=== PATIENT | female | born 1990 | race Caucasian/White ===

== ENCOUNTER 2020-08-14 09:28 | Emergency (ER) | payer OTHER, SELFPAY ==
--- NOTE | ~2020-08-14 | XR_ITS ---
EXAMINATION: XR chest 1V portable EXAM DATE: 08/14/2020 10:16 INDICATION: Back pain radiating through chest. TECHNIQUE: Portable AP frontal chest x-ray was obtained. There is no prior study for comparison. FINDINGS: The lungs are clear. There are no pleural effusions. The cardiomediastinal silhouette is within normal limits. There is no pneumothorax suspected. The bones and soft tissues are unremarkab le. IMPRESSION: No acute cardiopulmonary findings. Reviewed, dictated and finalized at location B.
[2020-08-14 09:36] VITALS: BP 141/96; PULSE 85; PULSE 91; PULSE 96; RESP 11; RESP 18; TEMP 36.2; O2SAT 100
--- NOTE | 2020-08-14 09:52 | ED.GENADULT ---
HPI - General Adult General Chief complaint: Unspecified Stated complaint: back pains/nausea/sweating Time Seen by Provider: 08/14/20 09:49 Source: patient Mode of arrival: ambulatory Limitations: no limitations History of Present Illness HPI narrative: This patient is a 30-year-old female complaining of a right-sided chest pain rating to her upper back accompanied by nausea and diarrhea x 1 day. Patient states her pain is a 6 out of 10 sharp at started last night. Patient denies any shortness of breath abdominal pain nausea vomiting or fever. Patient was recently diagnosed with COVID approximately 3 weeks ago and cleared from quarantine this past week. Related Data Home Medications Medication Instructions Recorded Confirmed No Home Medications 11/19/19 11/19/19 Allergies Allergy/AdvReac Type Severity Reaction Status Date / Time Sulfa (Sulfonamide Allergy Unknown Verified 11/19/19 13:50 Antibiotics) Henderson Allergy Unknown HIVES Uncoded 11/19/19 13:50 Review of Systems Review of Systems: All systems reviewed & are unremarkable except as noted in HPI and below Constitutional: Constitutional: Denies body ache(s), Denies chills, Denies excessive sweating, Denies fatigue, Denies fever(s), Denies headache(s), Denies lethargy, Denies malaise, Denies weakness and Denies weight loss Eyes: Eyes: Denies blurry vision, Denies change in vision and Denies loss of vision ENT: Denies dizziness, Denies ear discharge, Denies headache(s), Denies lip swelling, Denies epistaxis, Denies nasal congestion, Denies neck pain, Denies throat swelling and Denies tongue swelling Cardiovascular: Cardiovascular: Denies chest pain at rest, Denies chest pain with activity, Denies diaphoresis, Denies rapid heart rate, Denies edema, Denies irregular heart rhythm, Denies lightheadedness, Denies palpitations, Denies dyspnea and Denies dyspnea on exertion Respiratory: Respiratory: Denies chest congestion, Denies cough, Denies hemoptysis, Denies dyspnea and Denies dyspnea on exertion Gastrointestinal: Gastrointestinal: Denies abdominal pain, Denies melena, Denies hematochezia, Denies diarrhea, Denies nausea, Denies vomiting and Denies hematemesis Musculoskeletal: Musculoskeletal: Denies abnormal gait, Denies deformity, Denies joint swelling, Denies limited range of motion, Denies neck pain and Denies numbness Neurologic: Denies Abnormal speech present, Denies abnormal gait, Denies confusion, Denies dizziness, Denies headache(s), Denies focal weakness, Denies loss of vision, Denies numbness, Denies Other visual disturbances, Denies Sensory deficit (Neuro) and Denies weakness Psychiatric: Psychiatric: Denies confusion, Denies depression, Denies auditory hallucinations, Denies homicidal ideation and Denies suicidal ideation Endocrine: Endocrine: Denies cold intolerance, Denies excessive sweating, Denies fatigue, Denies heat intolerance and Denies palpitations Hematologic/Lymphatic: Hematologic/Lymphatic: Denies easy bleeding and Denies easy bruising Allergic/Immunologic: Allergic/Immunologic: Denies lip swelling, Denies throat swelling and Denies tongue swelling [facility] Family History Family History (Updated 06/17/16 @ 23:21 by DOCTOR UNKNOWN) Father Patient's father is in good health Sibling Patient's sister is in good health Patient's brother is in good health Mother Cerebrovascular accident, Onset Age: 42 Patient's mother is , Onset Age: 42 Social History Social History Smoking status: Never smoker Second hand tobacco smoke exposure: No Alcohol intake: never Gender identity (if verbalized by the patient): Female Exam Const: General: cooperative, healthy appearing, comfortable, no acute distress, well developed, alert and awake; No confusion Orientation/consciousness: oriented to person, oriented to place, oriented to time, patient oriented x3 and No confusion Limitations: no limitations HENMT: Head:
[2020-08-14 09:54] LABS: Basophils Absolute Auto 0.1 K/mm3 (0.0-0.1); Basophils Percent Auto 0.5 % (0.2-1.2); Eosinophils Absolute Auto 0.4 K/mm3 (0-0.3); Eosinophils Percent Auto 3.8 % (0-4.4); Hematocrit 42.6 % (37.0-47.0); Hemoglobin 14.3 g/dL (12.0-15.0); Immature Granulocyte Absolute 0.02 K/mm3 (0.00-0.031); Immature Granulocyte Percent A 0.2 % (0-0.5); Lymphocytes Absolute Auto 2.74 K/mm3 (0.9-3.2); Mean Corpuscular HGB Conc 33.6 g/dl (32-36); Mean Corpuscular Volume 92.2 fl (80-100); Mean Platelet Volume 10.3 fl (7.4-10.4); Monocytes Absolute Auto 0.9 K/mm3 (0.1-0.6); Monocytes Percent Auto 8.5 % (2.6-8.5); Neutrophils Absolute Auto 6.8 K/mm3 (1.3-6.7); Platelet Count Result 358 k/mm3 (150-375); Red Blood Count 4.62 M/mm3 (4.2-5.4); Red Cell Distribution Width 12.1 % (11.5-14.5)
[2020-08-14 10:06] LABS: Anion Gap 9 mmol/L (8-16); Blood Urea Nitrogen 13 mg/dL (7-17); Calcium 9.2 mg/dL (8.4-10.2); Carbon Dioxide 25 mmol/L (22-30); Chloride 105 mmol/L (98-107); Estimated CRCL calculation 113 ml/min; Estimated Glomerular Filt Rate > 60; Glucose 101 mg/dL (65-105); Potassium 3.6 mmol/L (3.4-5.0); Sodium 139 mmol/L (137-145)
[2020-08-14 10:20] LABS: D Dimer 0.31 ug/mL (<0.48)
[2020-08-14 11:40] VITALS: BP 118/74; PULSE 77; RESP 18; O2SAT 100
--- NOTE | 2020-08-14 11:57 | PC.NURSE ---
SPOKE WITH LAB AT THIS TIME ABOUT ADDING ON TROPONIN, STATES SHE WILL GET IT DONE.
[2020-08-14] MEDS: KETOROLAC 30 MG/ML VIAL (*BKC) IV PUSH (12:03)
[2020-08-14 12:20] LABS: Troponin I < 0.012 ng/mL (0.000-0.034)
--- NOTE | 2020-08-14 12:33 | ECG_ITS ---
Measurements Intervals [place] Rate: 79 P: 31 VA: 156 QRS: 21 QRSD: 95 T: 0 QT: 394 QTc: 453 Interpretive Statements SINUS RHYTHM BORDERLINE T WAVE ABNORMALITY- ANT/INF LEADS BASELINE WANDER- I, III, V5-V6 BORDERLINE ECG Electronically Signed On 08-14-2020 20:08:07 CDT by Jose Rivera D.O.
[2020-08-14 13:18] VITALS: BP 121/77; PULSE 89; RESP 16; O2SAT 100
== END 2020-08-14 13:20 | disposition home or self-care (01) ==
PROVIDERS: Emergency Provider Emergency Medicine; PCP Internal Medicine
DX: R07.89 Other chest pain (principal); K52.9 Noninfective gastroenteritis and colitis, unspecified; Z86.19 Personal history of other infectious and parasitic diseases; R94.31 Abnormal electrocardiogram [ECG] [EKG]
CPT/HCPCS: 36415; 71045; 80048; 84484; 85025; 85380; 93005; 96374; 99284; J1885

== ENCOUNTER 2023-02-08 18:21 | Emergency (ER) | payer OTHER, SELFPAY ==
[2023-02-08 18:36] VITALS: BP 135/81; PULSE 94; RESP 16; TEMP 36.7; O2SAT 100
--- NOTE | 2023-02-08 18:55 | ED.EAR ---
HPI - Ear Problem General Chief complaint: Ear Stated complaint: rt earache Time Seen by Provider: 02/08/23 18:55 Source: patient Mode of arrival: ambulatory Limitations: no limitations History of Present Illness HPI Narrative: 32-year-old female presents with complaint of right ear pain since yesterday. Afebrile. Reports that she had sinus and nasal congestion last week But has mostly resolved. All systems negative except as noted above. Related Data Allergies Allergy/AdvReac Type Severity Reaction Status Date / Time Sulfa (Sulfonamide Allergy Unknown unknown Verified 02/08/23 18:56 Antibiotics) Henderson Allergy Unknown HIVES Uncoded 02/08/23 18:56 Review of Systems Review of Systems: CONSTITUTIONAL: Denies fever, chills, or sweats. EYES: Denies visual changes, redness, or discharge. ENT: Denies rhinorrhea, congestion, sore throat. Reports right ear pain. CARDIOVASCULAR: Denies chest pain, palpitations, or edema. RESPIRATORY: Denies cough or dyspnea. GASTROINTESTINAL: Denies abdominal pain, nausea, vomiting, or diarrhea. GENITOURINARY: Denies dysuria or hematuria. SKIN: Denies rash or itching. MUSCULOSKELETAL: Denies back pain, joint pain, or myalgia. NEUROLOGIC: Denies headache, numbness, or weakness. PSYCHIATRIC: Denies anxiety or depression. All other systems reviewed are negative, except as documented in HPI. [facility] Past Medical History Medical History delivery delivered Surgical History Surgical History H/O dilation and curettage History of tonsillectomy Family History Family History Father Patient's father is in good health Sibling Patient's sister is in good health Patient's brother is in good health Mother Cerebrovascular accident, Onset Age: 42 Patient's mother is , Onset Age: 42 Social History Social History Smoking status: Never smoker Second hand tobacco smoke exposure: No Alcohol intake: never Gender identity (if verbalized by the patient): Female Comments At time of signature, agree with nursing past medical, surgical, social and family history. There is no relevant family history pertinent to the presenting complaint. Exam Narrative: GENERAL: This is a well-nourished, well-developed patient, in no apparent distress. HEAD: normocephalic, atraumatic. EYES: PERRL. Sclera clear/white. Vision is grossly intact. EARS: External ears normal, auditory canals clear and without drainage, Right TM is erythematous, bulging with purulence NOSE: External nose normal with no obvious nasal discharge, nares without redness, no rhinorrhea. THROAT: Mucous membranes moist, posterior pharynx clear. NECK: Neck supple, non-tender without lymphadenopathy, masses or thyromegaly. CARDIOVASCULAR: Regular rate and rhythm without murmurs, gallops, or rubs. RESPIRATORY: Clear to auscultation. Breath sounds equal bilaterally. No wheezes, rales, or rhonchi. SKIN: warm, Dry, intact with no suspicious lesions or rash, good texture and turgor. NEURO: awake, alert, and oriented to person, place and time. There were no obvious focal neurologic abnormalities. EXTREMITIES: No joint tenderness, effusion, or edema noted. Course Course Level of Care: Express Care Visit Vital Signs Vital signs: Vital Signs Temperature 36.7 C 02/08/23 18:36 Pulse Rate 94 02/08/23 18:36 Respiratory Rate 16 02/08/23 18:36 Blood Pressure 135/81 02/08/23 18:36 Pulse Oximetry 100 02/08/23 18:36 Oxygen Delivery Room Air 02/08/23 18:36 Temperature 36.7 C 02/08/23 18:36 Pulse Rate 94 02/08/23 18:36 Respiratory Rate 16 02/08/23 18:36 Blood Pressure 135/81 02/08/23 18:36 Pulse Oximetry 100 02/08/23 18:36 Oxygen Delivery Room Air
== END 2023-02-08 19:19 | disposition home or self-care (01) ==
PROVIDERS: Emergency Provider Nurse Practitioner Family; PCP Family Medicine
DX: H66.91 Otitis media, unspecified, right ear (principal)
CPT/HCPCS: 99213; G0463

== ENCOUNTER 2025-11-10 11:46 | Outpatient (CLI) | payer OTHER, SELFPAY ==
--- OUTSIDE RECORDS SUMMARY | 2025-11-10 13:35 | XMS_ITS | Encounter Summary ---
Author Organization [facility] Healthcare Address [address] [place] [id number] Care Team Providers Care Real Estate Internship Name Role Phone Weston Ace DO Primary Care Provider + Encounter Details Date Type Department Care Team ([facility] st Contact Info) Description 10/14/2025 Results Follow-Up [facility] Care at [address] [id number] [place] Hummel NP [address] [facility] [place] [address] [place], [place] [id number] XR Foot Left 3+ Vw Social History Tobacco Use Types Packs/Day Years Used Date Smoking Tobacco: Never PHQ-2 Answer Date Recorded PHQ-2 Total Score (If total score is 3 or more points, staff should administer the PHQ-9) 0 05/29/2025 Comments Unknown Sex and Gender Information Value Date Recorded Sex Assigned at Not on file Legal Sex Female 10:56 AM CDT Gender Identity Female 04/14/2022 10:50 AM CDT Sexual Orientation Straight 10/17/2021 7: 17 PM SUPERVISOR WEAVING documented as of this encounter Plan of Treatment Not on file documented as of this encounter Visit Diagnoses Not on filedocumented in this encounter Care Teams Real Estate Internship Relationship Specialty Start Date End Date Weston Ace DO [facility] [address] [place] [address] PCP - General Family Medicine 10/18/21 documented as of this encounter
--- OUTSIDE RECORDS SUMMARY | 2025-11-10 13:35 | XMS_ITS | Clinical Summary ---
Author Organization [facility] Address [address] [facility] [place] [address] Care Team Providers Care Electrical Cad Designer Name Role Phone Bernardino Smith Primary Care Provider [phone] Source Comments [facility],non-owned Affiliates and Associated Physician Practices is amultiple site organization consisting of ambulatory clinics and hospital sitesin [place], [place], [place] and [place]. This disclosure is being madepursuant to the Care Everywhere program and may not contain all information available regarding this patient. Last updated 18.[facility] Allergies Active Allergy Reactions Criticality Noted Date Comments Sulfa Drugs 10/14/2017 Medications * Be aware that medications may not be up to date on this document. Alwaysverify current medications with the patient. fluticasone propionate (FLONASE) 50 MCG/ACT nasal sprayIndication s:Acute serous otitis media of left ear, recurrence not specified [place] 2 sprays into each nostril once daily 1 g 12/04/2019 Active Social History Tobacco Use Types Packs/Day Years Used Date Smoking Tobacco: Never Smokeless Tobacco: Never Comments No Sex and Gender Information Value Date Recorded Sex Assigned at Not on file Legal Sex Female 6:23 PM WORD PROCESSOR TECHNICIAN Gender Identity Not on file Sexual Orientation Not on file Last Filed Vital Signs Vital Sign Reading Time Taken Comments Blood Pressure 118/72 12/04/2019 9:36 AM WORD PROCESSOR TECHNICIAN Pulse 87 12/04/2019 9:36 AM WORD PROCESSOR TECHNICIAN Temperature 37.1 C (98.7 F) 12/04/2019 9:36 AM WORD PROCESSOR TECHNICIAN Respiratory Rate 16 12/04/2019 9:36 AM WORD PROCESSOR TECHNICIAN Oxygen Saturation 98% 12/04/2019 9:36 AM WORD PROCESSOR TECHNICIAN Inhaled Oxygen Concentration - - Weight 102.1 kg (225 lb) 12/04/2019 9:36 AM WORD PROCESSOR TECHNICIAN Height 175.3 cm (5' 9) 12/04/2019 9:36 AM WORD PROCESSOR TECHNICIAN Body Mass Index 33.23 12/04/2019 9:36 AM WORD PROCESSOR TECHNICIAN Plan of Treatment Health Maintenance Due Date Last Done Comments HIV SCREENING 2003 HEPATITIS C SCREENING 03/19/2006 DTAP/TDAP/TD VACCINES (1 - Tdap) 2007 HEPATITIS B VACCINE (1 of 3 - 19+ 3-dose series) 2007 HPV VACCINE (1 - 3-dose SCDM series) 2015 DEPRESSION SCREENING 11/20/2024 COVID-19 VACCINE (1 - 2024-2 6 season) 2025 INFLUENZA VACCINE (#1) 2025 ZOSTER VACCINE (1 of 2) 2038 HIB VACCINE Aged Out No longer eligi ble based on patient's age to complete this topic MENINGOCOCCAL (Group B) VACC INE SHARED DECISION-MAKING Aged Out No longer eligibl e based on patient's age to complete this topic MENINGOCOCCAL GROUPS A/C/Y/W VACCINE Aged Out No longer eligible b ased on patient's age to complete this topic PNEUMOCOCCAL VACCINE Aged Out No long er eligible based on patient's age to complete this topic Insurance [facility] Care Teams Electrical Cad Designer Relationship Specialty Start Date End Date Bernardino Smith DO [address] [facility] [address] [facility] [address] [place] [address] PCP - General Internal Medicine 10/14/17
--- OUTSIDE RECORDS SUMMARY | 2025-11-10 13:35 | XMS_ITS | Clinical Summary ---
Author Organization [facility] at the Medical Office Building Address [address] [place] [id number] Care Team Providers Care Vibrator Equipment Tester Name Role Phone Weston Ace DO Primary Care Provider + Allergies Active Allergy Reactions Criticality Noted Date Comments Sulfa (Sulfonamide Antibiotics) Itching,Rash,Redness Mediu m 10/18/2021 Medications multivitamin capsule Take 1 capsule by mouth daily Active glycopyrrolate (ROBINUL) 1 mg tablet 08/28/2023 Active Active Problems Problem Noted Date Diagnosed Date Seasonal allergic rhinitis due to pollen 025 Allergic rhinitis due to mold 09/11/2025 Allergic rhinitis due to dust mite 09/11/2025 IFG (impaired fasting glucose) 02/19/2025 Elevated BP without diagnosis of hypertension Overview (02/19/2025): chronic,stable,cont current tx,rout f/u prior record/labs reviewed;see orders RTC PRN Home BP Diary-report abnormals Mixed hyperlipidemia 02/19/2025 Leukocytosis, unspecified type 01/06/2023 History of kidney stones 10/18/2021 Mitral valve prolapse 07/10/2014 Palpitations 07/10/2014 Encounters Date Type Department Care Team Description 10/15/2025 Telephone [facility] Sports Medicine and Primary Care at [address] [place] [address] Benjie Canchola DO 10/14/2025 Results Follow-Up [facility] Convenient Care at [address] [address] Concepción Hummel NP XR Foot Left 3+ Vw 10/13/2025 3:52 PM EPIC APPLICATION COORDINATOR - 10/13/2025 11:59 PM EPIC APPLICATION COORDINATOR Hospital Encounter [address] [address] Left foot pain Discharge Disposition: Discharge to home or self care 10/12/2025 11:00 AM EPIC APPLICATION COORDINATOR Office Visit [facility] Con[facility]ient Care at [address] [phone] Edwina Hernández NP Left foot pain (Primary Dx) 09/01/2025 11:01 AM CDT - 09/01/2025 11:59 PM CDT Hospital Encounter [address] [address] Allergic rhinitis, unspecified seasonality, unspecified trigger; Chronic urticaria Discharge Disposition: Discharge to home or self care 09/01/2025 11:00 AM CDT Lab [facility] Medicine Infectious Diseases [address] [place] [address] [address] [place] [address] 09/01/2025 9:30 AM CDT Office Visit [facility] Medicine Allergy and Immunology [address] [place] [address] [address] [place] [address] Vandana Resendez MD Chronic urticaria (Primary Dx); Seasonal allergic rhinitis due to pollen; Allergic rhinitis due to mold; Allergic rhinitis due to dust mite from Last 3 Months Immunizations Immunization Administration Dates Next Due Influenza, Quadrivalent, Spl it, Preservative Free, Intramuscular 10/27/2023,10/19/2022 Influenza, Trivalent, Preser vative Free, Intramuscular 10/28/2024,08/27/2017,09/29/2015 Tdap 08/27/2017,10/26/2015,10/15/2013 Surgical History Surgery Date Site/Laterality Comments TONSILLECTOMY WISDOM TOOTH EXTRACTION DILATION AND CURETTAGE OF UTERUS SECTION Medical History Medical History Date Comments Asthma Kidney stone Family History Medical History Relation Name Comments Colon cancer Maternal Grandfather Brain cancer Maternal Grandmother Hypertension Mother Family history of hypertension - (Added by TW Conv) Stroke Mother Family history of cerebrovascular accident - (Added by TW Conv) Lung cancer Other Ovarian cancer Other Diabetes Paternal Grandmother Relation Name Status Comments Maternal Grandfather Maternal Grandmother Mother Other Paternal Grandmother Social History Tobacco Use Types Packs/Day Years Used Date Smoking Tobacco: Never Tobacco Cessation:Counseling Given: Not Answered PHQ-2 Answer Date Recorded PHQ-2 Total Score (If total score is 3 or more points, staff should administer the PHQ-9) 0 05/29/2025 Comments Unknown Sex and Gender Information Value Date Recorded Sex Assigned at Not on file Legal Sex Female 10:56 AM CDT Gender Identity Female 04/14/2022 10:50 AM CDT Sexual Orientation Straight 10/17/2021 7: 17 PM EPIC APPLICATION COORDINATOR Last Filed Vital Signs Vital Sign Reading Time Taken Comments Blood Pressure 145/92 10/12/2025 11:13 AM EPIC APPLICATION COORDINATOR Pulse 108 10/12/2025 11:13 AM EPIC APPLICATION COORDINATOR Temperature 37.3 C (99.1 F) 10/12/2025 11:13 AM EPIC APPLICATION COORDINATOR Respiratory Rate 18 10/12/2025 11:13 AM EPIC APPLICATION COORDINATOR Oxygen Saturation 99% 10/12/2025 11:13 AM EPIC APPLICATION COORDINATOR Inhaled Oxygen Concentration - - Weight 108.9 kg (240 lb) 10/12/2025 11:13 AM EPIC APPLICATION COORDINATOR Height 175.3 cm (5' 9.02) 09/01/2025 9:16 AM CD T Body Mass Index 35.43 09/01/2025 9:16 AM CDT Plan of Treatment Health Maintenance Due Date Last Done Comments Cervical Cancer Screening 1988 Varicella Vaccines (1 of 2 - 13+ 2-dose series) 2001 HPV Vaccines (1 - 3-dose SCDM series) 2015 Covid-19 Vaccine ( season) 2025 03/12/2021, 02/12/2021 Influenza Vaccine (#1) 2025 , 10/27/2023, 10/19/2022, Additional history exists Regular Well Visit/Exam 18-64 10/28/2025 10/28/2024, 10/27/2023, 10/19/2022, Additional history exists Depression Screening 05/21/2026 05/21/2025, 10/28/2024, 10/27/2023, Additional history exists DTaP/Tdap/Td Vaccine (4 - Td or Tdap) 08/27/2027 08/27/2017, 10/26/2015, 10/15/2013 Hepatitis B Screening Completed 10/28/2024 Hepatitis C Screening Completed 10/28/2024 Pneumococcal vaccine <65 Aged Out No longer eligible based on patient's age to complete this topic Procedures Procedure Name Priority Date/Time Associated Diagnosis Comments XR FOOT LEFT 3 OR MORE VIEWS Schedule NAVNEET, Read NAVNEET (Appt Today, Awaiting Results) 10/13/2025 4:11 PM EPIC APPLICATION COORDINATOR Left foot pain BLOOD MISC TO [place] Routine 09/01/2025 4: 10 PM CDT EGFR Routine 09/01/2025 11:01 AM CDT DIFFERENTIAL AUTO Routine 09/01/2025 11:01 AM CDT Chronic urticaria COMPREHENSIVE METABOLIC PANEL Routine 09/01/2025 11:01 AM CDT THYROID PEROXIDASE ANTIBODY Routine 09/01/2025 11:01 AM CDT Chronic urticaria TRYPTASE Routine 09/01/2025 11:01 AM CDT Chronic urticaria CBC WITH AUTO DIFFERENTIAL Routine 09/01/2025 11:01 AM CDT Chronic urticaria IGE Routine 09/01/2025 11:01 AM CDT Chronic urticaria CRP (ACUTE PHASE) Routine 09/01/2025 11:01 AM CDT Chronic urticaria ERYTHROCYTE SEDIMENTATION RATE Routine 09/01/2025 11:01 AM CDT Chronic urticaria DAMARI QUALITATIVE WITH REFLEX TO DAMARI QUANTITATIVE Routine 09/01/2025 11:01 AM CDT Chronic urticaria RHEUMATOID FACTOR Routine 09/01/2025 11:01 AM CDT Chronic urticaria ALLERGEN BIRCH COMMON SILVER (TREE) IGE Routine 09/01/2025 11:01 AM CDT Allergic rhinitis, unspecified seasonality, unspecified trigger ALLERGEN ELM (TREE) IGE Routine 09/01/20 11:01 AM CDT Allergic rhinitis, unspecified seasonality, unspecified trigger ALLERGEN MAPLE/BOX ELDER (TREE) IGE Routine 09/01/2025 11:01 AM CDT Allergic rhinitis, unspecified seasonality, unspecified trigger ALLERGEN MOUNTAIN JUNIPER (TREE) IGE Routine 09/01/2025 11:01 AM CDT Allergic rhinitis, unspecified seasonality, unspecified trigger ALLERGEN MULBERRY (TREE) IGE Routine 09/01/2025 11:01 AM CDT Allergic rhinitis, unspecified seasonality, unspecified trigger ALLERGEN OAK RED (TREE) IGE Routine 09/01/2025 11:01 AM CDT Allergic rhinitis, unspecified seasonality, unspecified trigger ALLERGEN SYCAMORE MONTSERRATIAN (TREE) IGE Routine 09/01/2025 11:01 AM CDT Allergic rhinitis, unspecified seasonality, unspecified trigger ALLERGEN WALNUT (TREE) IGE Routine 09/01/2025 11:01 AM CDT Allergic rhinitis, unspecified seasonality, unspecified trigger ALLERGEN BERMUDA GRASS (GRASS) IGE Routine 09/01/2025 11:01 AM CDT Allergic rhinitis, unspecified seasonality, unspecified trigger ALLERGEN DEMOND GRASS (GRASS) IGE Routine 09/01/2025 11:01 AM CDT Allergic rhinitis, unspecified seasonality, unspecified trigger ALLERGEN FARAZ GRASS (GRASS) IGE Routine 09/01/2025 11:01 AM CDT Allergic rhinitis, unspecified seasonality, unspecified trigger ALLERGEN PLANTAIN UZBEK (WEED) IGE Routine 09/01/2025 11:01 AM CDT Allergic rhinitis, unspecified seasonality, unspecified trigger ALLERGEN TEMPLETON'S QUARTER (WEED) IGE Routine 09/01/2025 11:01 AM CDT Allergic rhinitis, unspecified seasonality, unspecified trigger ALLERGEN PIGWEED ROUGH (WEED) IGE Routine 09/01/2025 11:01 AM CDT Allergic rhinitis, unspecified seasonality, unspecified trigger ALLERGEN RAGWEED SHORT/COMMON (WEED) IGE Routine 09/01/2025 11:01 AM CDT Allergic rhinitis, unspecified seasonality, unspecified trigger ALLERGEN NETTLE (WEED) IGE Routine 09/01/2025 11:01 AM CDT Allergic rhinitis, unspecified seasonality, unspecified trigger ALLERGEN ALTERNARIA TENUIS (MOLD) IGE Routine 09/01/2025 11:01 AM CDT Allergic rhinitis, unspecified seasonality, unspecified trigger ALLERGEN ASPERGILLUS FUMIGATUS (MOLD) IGE Routine 09/01/2025 11:01 AM CDT Allergic rhinitis, unspecified seasonality, unspecified trigger ALLERGEN CLADOSPORIUM HERBARUM (MOLD) IGE Routine 09/01/2025 11:01 AM CDT Allergic rhinitis, unspecified seasonality, unspecified trigger ALLERGEN PENICILLIUM CHRYSOGENUM (MOLD) IGE Routine 09/01/2025 11:01 AM CDT Allergic rhinitis, unspecified seasonality, unspecified trigger ALLERGEN EPITHELIA/DANDER CAT (ANIMAL) IGE Routine 09/01/2025 11:01 AM CDT Allergic rhinitis, unspecified seasonality, unspecified trigger ALLERGEN COCKROACH MONTSERRATIAN (INSECT) IGE Routine 09/01/2025 11:01 AM CDT Allergic rhinitis, unspecified seasonality, unspecified trigger ALLERGEN DERMATOPHAGOIDES FARINAE (INSECT) IGE Routine 09/01/2025 11:01 AM CDT Allergic rhinitis, unspecified seasonality, unspecified trigger ALLERGEN DERMATOPHAGOIDES PTERONYSSINUS (INSECT) IGE Routine 09/01/2025 11:01 AM CDT Allergic rhinitis, unspecified seasonality, unspecified trigger ALLERGEN EPITHELIA/DANDER DOG (ANIMAL) IGE Routine 09/01/2025 11:01 AM CDT Allergic rhinitis, unspecified seasonality, unspecified trigger ALLERGEN MOUSE MIX (ANIMAL) IGE Routine 09/01/2025 11:01 AM CDT Allergic rhinitis, unspecified seasonality, unspecified trigger ALLERGEN RAT MIX (ANIMAL) IGE Routine 09/01/2025 11:01 AM CDT Allergic rhinitis, unspecified seasonality, unspecified trigger HEPATITIS C ANTIBODY Routine 10/28/2024 7:45 AM EPIC APPLICATION COORDINATOR Need for hepatitis C screening test from Last 3 Months or Most Recently Relevant to Health Maintenance Results * XR Foot Left 3+ Vw (10/13/2025 4:11 PM EPIC APPLICATION COORDINATOR) Anatomical Region Laterality Modality Lower Extremities, Foot Left Computed Radiography 10/14/2025 6:59 AM EPIC APPLICATION COORDINATOR Impressions 10/14/2025 6:59 AM EPIC APPLICATION COORDINATOR 1. No acute radiographic abnormality. 2. Soft tissue swelling along the dorsal midfoot. Electronically signed by: Warren Subramanian M.D. Narrative 10/14/2025 6:59 AM EPIC APPLICATION COORDINATOR EXAM DESCRIPTION: XR FOOT LEFT 3 OR MORE VIEWS REASON FOR STUDY: Left foot pain after foot buckled underneath her on Monday night. TECHNIQUE: Three views of the left foot COMPARISON: Left foot radiographs 09/15/2022 FINDINGS: BONES/JOINTS: No acute fracture or dislocation. The joint spaces are normal. There is a 4 mm plantar surface calcaneal spur. SOFT TISSUES: Soft tissue swelling along the dorsal midfoot. Procedure Note Warren Subramanian MD - 10/14/2025 EXAM DESCRIPTION: XR FOOT LEFT 3 OR MORE VIEWS REASON FOR STUDY: Left foot pain after foot buckled underneath her on Monday night. TECHNIQUE: Three views of the left foot COMPARISON: Left foot radiographs 09/15/2022 FINDINGS: BONES/JOINTS: No acute fracture or dislocation. The joint spaces are normal. There is a 4 mm plantar surface calcaneal spur. SOFT TISSUES: Soft tissue swelling along the dorsal midfoot. IMPRESSION: 1. No acute radiographic abnormality. 2. Soft tissue swelling along the dorsal midfoot. Electronically signed by: Warren Subramanian M.D. Edwina Hernández NP IMG XR PROCEDURES Final Result * BLOOD MISC TO [place] (09/01/2025 4:10 PM CDT) Test name, chem FCUIP Ebony ref Lab Misc See Footnote BRAN[facility]E FIELDS Comment: Test Result Flag Unit RefValue CU (Chronic Urticaria) Index Panel Anti-Thyroid Peroxidase IgG <10 IU/mL <35 Anti-Thyroglobulin IgG <20 IU/mL <40 TSH (Thyrotropin) 0.76 uIU/mL 0.4-4 CU Index 9.6 <10 The CU Index(R) test is the second generation Functional Anti-FceR test. Patients with a CU Index(R) greater than or equal to 10 have basophil reactive factors in their serum which supports an autoimmune basis for disease. *This test was developed and its performance characteristics determined by [employer]. It has not been cleared or approved by the U.S. Food and Drug Administration. FLAG Interpretation: A = Abnormal, H = High, L = Low Test Performed by: [facility] [id number] [id number] Blood 09/01/2025 4:10 PM CDT 09/02/2025 7:58 AM CDT Harry IRVIN CH - 09/12/2025 7:44 AM CDT CU (Chronic Urticaria) Index Panel Vandana Resendez MD LAB BLOOD ORDERABLES Final Result Performing Organization Address City/[facility] Co de Phone Number BRANDEE FIELDS [address] [facility] [place] [address] [facility] ref Lab * Allergen Rat mix (animal) IgE (09/01/2025 11:01 AM CDT) Rat mix IgE <0.10 0.00 - 0.34 kUnits/L Comment:Testing performed by : [facility], [address] [place]., [address] Blood 09/01/2025 11:0 1 AM CDT 09/02/2025 10:20 AM CDT Vandana Resendez MD LAB BLOOD ORDERABLES Final Result Performing Organization Address [facility] Co de Phone Number JAQUELINEDEDRICK FIELDS [address] [place] [address] * Allergen Mouse mix (animal) IgE (09/01/2025 11:01 AM CDT) Pathologist [facility] Mouse mix IgE <0.10 0.00 - 0.34 kUnits/L Comment:Testing performed by : [facility], [address] [place] [address]., [id number] Blood 09/01/2025 11:0 1 AM CDT 09/02/2025 10:20 AM CDT Vandana Resendez MD LAB BLOOD ORDERABLES Final Result Performing Organization Address City/[facility] Co de Phone Number BRANDEE FIELDS [address] [facility] [address] * DAMARI ab ql w/rflx to DAMARI qn (09/01/2025 11:01 AM CDT) DAMARI Negative Comment: Interpretive Data Normal range for DAMARI Qualitative Antibody = Negative. 1. DAMARI is performed using indirect immunofluorescence against HEp-2 cells 2. DAMARI titers are performed on all positive qualitative results. 3. A significantly positive DAMARI result is defined as a positive nuclear fluorescence at a titer of 1:80 or greater. 4. 15% of normal people above age 65 have significantly positive DAMARI results. 5% or less of normal people age 65 or under have significantly positive DAMARI results. Current interpretive data was last revised on 2020. Testing performed by: [facility], [address] [place]., [address] Blood 09/01/2025 11:0 1 AM CDT 09/02/2025 10:11 AM CDT Vandana Resendez MD LAB BLOOD ORDERABLES Final Result [facility] FIELDS [address] Department of Laboratories [place], [place] [id number] * eGFR (09/01/2025 11:01 AM CDT) eGFR 87 >=60 mL/min/1. 73 m2 Comment: Interpretive Data Reference Interval Normal >/= 90 mL/min/1.73m2 Mildly decreased* 60 - 89 mL/min/1.73m2 Mildly to moderately decreased 45 - 59 mL/min/1.73m2 Moderately to severely decreased 30 - 44 mL/min/1.73m2 Severely decreased 15 - 29 mL/min/1.73m2 Kidney Failure < 15 mL/min/1.73m2 *Relative to young adult level Estimated glomerular filtration rate is determined by the 2020 CKD-EPI equation recommended by the National Kidney Foundation (A Unifying Approach to GFR Estimation: Recommendations of the NKF-ASK Task Force on Reassessing the Inclusion of Race in Diagnosing Kidney Disease, JASN 202). The CKD-EPI equation should not be used for patients with unstable renal function and has not been validated in children and those over 70. Current interpretive data was last reviewed 2021. Blood 09/01/2025 11:0 1 AM CDT 09/01/2025 4:52 PM CDT Vandana Resendez MD LAB BLOOD ORDERABLES Final Result [facility] [address] [place] [address] * (ABNORMAL) Differential, auto (09/01/2025 11:01 AM CDT) Neutrophil abs 6.65(H) 1.50 - 6.50 K/cumm Imm gran abs 0.03 0.00 - 0.10 K/cumm [facility] Lymphocyte abs 2.61 0.80 - 3.30 K/cumm [facility] Monocyte abs 0.80 0.20 - 0.80 K/cumm [facility] Eosinophil abs 0.39 0.00 - 0.50 K/cumm [facility] Basophil abs 0.08 0.00 - 0.10 K/cumm [facility] Neutrophil pct 62.9 % [facility] Comment: Interpretive Data Percent cell count reference ranges are not reported, since discordance with absolute values may lead to misinterpretation of CBC data. Current Interpretive Data was last revised on 2018. Imm gran pct 0.3 % [facility] Comment: Interpretive Data Percent cell count reference ranges are not reported, since discordance with absolute values may lead to misinterpretation of CBC data. Current Interpretive Data was last revised on 2018. Lymphocyte pct 24.7 % [facility] Comment: Interpretive Data Percent cell count reference ranges are not reported, since discordance with absolute values may lead to misinterpretation of CBC data. Current Interpretive Data was last revised on 2018. Monocyte pct 7.6 % [facility] Comment: Interpretive Data Percent cell count reference ranges are not reported, since discordance with absolute values may lead to misinterpretation of CBC data. Current Interpretive Data was last revised on 2018. Eosinophil pct 3.7 % [facility] Comment: Interpretive Data Percent cell count reference ranges are not reported, since discordance with absolute values may lead to misinterpretation of CBC data. Current Interpretive Data was last revised on 2018. Basophil pct 0.8 % [facility] Comment: Interpretive Data Percent cell count reference ranges are not reported, since discordance with absolute values may lead to misinterpretation of CBC data. Current Interpretive Data was last revised on 2018. Blood 09/01/2025 11:0 1 AM CDT 09/01/2025 4:52 PM CDT Vandana Resendez MD LAB BLOOD ORDERABLES Final Result Performing Organization Address [facility] Co de Phone Number BRANDEE FIELDS [address] [facility] [place] [address] * Allergen Penicillium chrysogenum (mold) IgE (09/01/2025 11:01 AM CDT) Penicillium chrysogenum IgE <0.10 0.00 - 0.34 kUnits/L Comment:Testing performed by : [facility], [address] [place] [address]., [id number] Blood 09/01/2025 11:0 1 AM CDT 09/02/2025 10:20 AM CDT Vandana Resendez MD LAB BLOOD ORDERABLES Final Result Performing Organization Address [facility] de Phone Number JAQUELINEDEDRICK [address] [place] [address] * Allergen [place] (tree) IgE (09/01/2025 11:01 AM CDT) [place] IgE <0.10 0.00 - 0.34 kUnits/L Comment:Testing performed by : [facility], [address] [place] [address]., [id number] Blood 09/01/2025 11:0 1 AM CDT 09/02/2025 10:20 AM CDT Result [facility] Vandana Resendez MD LAB BLOOD ORDERABLES Final Result Performing Organization Address City/[facility]/ZIP Co de Phone Number BRANDEE FIELDS [address] [facility] [place] [address] * Allergen Mountain juniper (tree) IgE (09/01/2025 11:01 AM CDT) Pathologist [facility] sally IgE <0.10 0.00 - 0.34 kUnits/L Comment:Testing performed by : [facility], [address] [place]., [address] Blood 09/01/2025 11:0 1 AM CDT 09/02/2025 10:20 AM CDT Vandana Resendez MD LAB BLOOD ORDERABLES Final Result JAQUELINEDEDRICK FIELDS [address] [place] [address] * (ABNORMAL) CBC with auto differential (09/01/2025 11:01 AM CDT) [facility] WBC 10.56(H) 3.80 - 9.90 K/cumm Hgb 14.3 11.9 - 15.5 g/dL [facility] Hct 43.7 35.6 - 45.5 % [facility] Plt 376 150 - 400 K/cumm [facility] CH MPV 9.7 9.1 - 12.3 fL [facility] RBC 4.75 3.90 - 5.20 M/cumm [facility] MCV 92.0 81.3 - 96.4 fL [facility] CH MCH 30.1 27.1 - 33.3 pg [facility] MCHC 32.7 32.3 - 35.7 g/dL [facility] RDW CV 12.5 11.1 - 14.9 % [facility] RDW SD 41.9 35.7 - 48.1 fL [facility] NRBC abs 0.00 0.00 - 0.01 K/cumm [facility] Blood 09/01/2025 11:0 1 AM CDT 09/01/2025 4:52 PM CDT Vandana Resendez MD LAB BLOOD ORDERABLES Final Result Performing Organization Address City/[facility]/ZIP Co de Phone Number BRANDEE DIAMOND [address] [place] [address] * Thyroid peroxidase antibody (TPO) (09/01/2025 11:01 AM CDT) Anti Thyroid Peroxidase <30 <=34 IUnits/mL Comment: ATPO Interpretive Data Results may be up to 28% higher in patients receiving Itraconazole. Current interpretive data was last revised 2021. Testing performed by: [facility], [address] [place]., [address] Blood 09/01/2025 11:0 1 AM CDT 09/02/2025 10:25 AM CDT Vandana Resendez MD LAB BLOOD ORDERABLES Final Result [facility] FIELDS [address] [place] [address] * Tryptase (09/01/2025 11:01 AM CDT) Tryptase Level 2.3 <11.5 ng/mL [facility] ref [facility] Comment: Test Performed by: [place] [address] Sewing Supervisor: Lencho Thomas Ph.D.; CLIA# [id number] Blood 09/01/2025 11:0 1 AM CDT 09/01/2025 4:52 PM CDT Vandana Resendez MD LAB BLOOD ORDERABLES Final Result JAQUELINEDEDRICK FIELDS [address] [place] [address] [facility] ref Lab * Allergen Bermuda grass (grass) IgE (09/01/2025 11:01 AM CDT) [place] grass IgE <0.10 0.00 - 0.34 kUnits/L Comment:Testing performed by : [facility], [address] [place] [address]., [id number] Blood 09/01/2025 11:0 1 AM CDT 09/02/2025 10:20 AM CDT Vandana Resendez MD LAB BLOOD ORDERABLES Final Result Performing Organization Address [facility] Co de Phone Number BRANDEE [address] [place] [address] * Allergen Plantain croatian (weed) IgE (09/01/2025 11:01 AM CDT) Plantain croatian IgE <0.10 0.00 - 0.34 kUnits/L Comment:Testing performed by : [facility], [address] [place] [address]., [id number] Blood 09/01/2025 11:0 1 AM CDT 09/02/2025 10:20 AM CDT Result [facility] Vandana Resendez MD LAB BLOOD ORDERABLES Final Result Performing Organization Address [facility] Co de Phone Number [facility] [address] [facility] [place] [address] * Allergen Elm (tree) IgE (09/01/2025 11:01 AM CDT) Pathologist [facility] Elm IgE <0.10 0.00 - 0.34 kUnits/L Comment:Testing performed by : [facility], [address] [place] [address]., [id number] Blood 09/01/2025 11:0 1 AM CDT 09/02/2025 10:20 AM CDT Result [facility] Vandana Resendez MD LAB BLOOD ORDERABLES Final Result Performing Organization Address City/[facility]/ZIP Co de Phone Number [facility] [address] [place] [address] * Allergen Cladosporium herbarum (mold) IgE (09/01/2025 11:01 AM CDT) Cladosporium herbarum IgE <0.10 0.00 - 0.34 kUnits/L Comment:Testing performed by : [facility], [address] [place] [address]., [id number] Blood 09/01/2025 11:0 1 AM CDT 09/02/2025 10:20 AM CDT Vandana Resendez MD LAB BLOOD ORDERABLES Final Result Performing Organization Address [facility] Co de Phone Number [facility] [address] [facility] [place] [address] * Allergen Birch common silver (tree) IgE (09/01/2025 11:01 AM CDT) Birch common silver IgE <0.10 0.00 - 0.34 kUnits/L Comment:Testing performed by : [facility], [address] [place] [address]., [id number] Blood 09/01/2025 11:0 1 AM CDT 09/02/2025 10:20 AM CDT Result [facility] Vandana Resendez MD LAB BLOOD ORDERABLES Final Result Performing Organization Address [facility] Co de Phone Number [facility] [address] [facility] [place] [address] * (ABNORMAL) Allergen Alternaria tenuis (mold) IgE (09/01/2025 11:01 AM CDT) Alternaria tenius IgE 8.55(H) 0.00 - 0.34 kUnits/L Comment:Testing performed by : [facility], [address] [place] [address]., [id number] Blood 09/01/2025 11:0 1 AM CDT 09/02/2025 10:20 AM CDT Vandana Resendez MD LAB BLOOD ORDERABLES Final Result Performing Organization Address City/[facility] Co de Phone Number BRANDEE [address] [address] [facility] [place] [address] * Allergen Aspergillus fumigatus (mold) IgE (09/01/2025 11:01 AM CDT) Aspergillus fumigatus IgE <0.10 0.00 - 0.34 kUnits/L Comment:Testing performed by : [facility], [address] [place] [address]., [id number] Blood 09/01/2025 11:0 1 AM CDT 09/02/2025 10:20 AM CDT Vandana Resendez MD LAB BLOOD ORDERABLES Final Result Performing Organization Address [facility] Co de Phone Number [facility] [address] [address] [facility] [place] [address] * Allergen Dermatophagoides pteronyssinus (insect) IgE (09/01/2025 11:01 AM CDT) Dermatophyton pteronyssinus IgE 0.12 0.00 - 0.34 kUnits/L Comment:Testing performed by : [facility], [address] [place] [address]., [id number] Blood 09/01/2025 11:0 1 AM CDT 09/02/2025 10:20 AM CDT Vandana Resendez MD LAB BLOOD ORDERABLES Final Result Performing Organization Address City/[facility]/ZIP Co de Phone Number [facility] [address] [address] [facility] [place] [address] * Allergen Dermatophagoides farniae (insect) IgE (09/01/2025 11:01 AM CDT) Dermatophyton farinae IgE <0.10 0.00 - 0.34 kUnits/L Comment:Testing performed by : [facility], [address] [place] [address] [place]., [id number] Blood 09/01/2025 11:0 1 AM CDT 09/02/2025 10:20 AM CDT Result [facility] Vandana Resendez MD LAB BLOOD ORDERABLES Final Result Performing Organization Address [facility] Co de Phone Number BRANDEE [address] [address] [facility] [place] [address] * Allergen Epithelia/dander dog (animal) IgE (09/01/2025 11:01 AM CDT) Dog dander IgE <0.10 0.00 - 0.34 kUnits/L Comment:Testing performed by : [facility], [address] [place] [address], [id number] Blood 09/01/2025 11:0 1 AM CDT 09/02/2025 10:20 AM CDT Result [facility] Vandana Resendez MD LAB BLOOD ORDERABLES Final Result Performing Organization Address [facility] Co de Phone Number [facility] [address] [place] [address] * Allergen Cockroach citizen [place] (insect) IgE (09/01/2025 11:01 AM CDT) Cockroach IgE 0.10 0.00 - 0.34 kUnits/L Comment:Testing performed by : [facility], [address] [place] [address]., [id number] Blood 09/01/2025 11:0 1 AM CDT 09/02/2025 10:20 AM CDT Result [facility] Vandana Resendez MD LAB BLOOD ORDERABLES Final Result Performing Organization Address City/[facility]/ZIP Co de Phone Number [facility] [address] [address] [facility] [place] [address] * Allergen Epithelia/dander cat (animal) IgE (09/01/2025 11:01 AM CDT) Cat dander IgE <0.10 0.00 - 0.34 kUnits/L Comment:Testing performed by : [facility], [address] [place] [address]., [id number] Blood 09/01/2025 11:0 1 AM CDT 09/02/2025 10:20 AM CDT Vandana Resendez MD LAB BLOOD ORDERABLES Final Result Performing Organization Address City/[facility] Co de Phone Number JAQU[facility]IN[facility] [address] [place] [address] * (ABNORMAL) Allergen Ragweed short/common (weed) IgE (09/01/2025 11:01 AM CDT) Ragweed common IgE 1.68(H) 0.00 - 0.34 kUnits/L Comment:Testing performed by : [facility], [address] [place] [address]., [id number] Blood 09/01/2025 11:0 1 AM CDT 09/02/2025 10:20 AM CDT Vandana Resendez MD LAB BLOOD ORDERABLES Final Result Performing Organization Address City/[facility] Co de Phone Number BRANDEE [address] [address] [place] [address] * Allergen Pigweed, rough (weed) IgE (09/01/2025 11:01 AM CDT) Pigweed rough IgE <0.10 0.00 - 0.34 kUnits/L Comment:Testing performed by : [facility], [address] [place] [address]., [id number] Blood 09/01/2025 11:0 1 AM CDT 09/02/2025 10:20 AM CDT Vandana Resendez MD LAB BLOOD ORDERABLES Final Result [facility] FIELDS [address] [address] [facility] [place], [place] [id number] * Allergen Nettle (weed) IgE (09/01/2025 11:01 AM CDT) Nettle IgE <0.10 0.00 - 0.34 kUnits/L Comment:Testing performed by : [facility], [address] [place] [address]., [id number] Blood 09/01/2025 11:0 1 AM CDT 09/02/2025 10:20 AM CDT Vandana Resendez MD LAB BLOOD ORDERABLES Final Result Performing Organization Address City/[facility] Co de Phone Number BRANDEE [address] [address] [facility] [place] [address] * Allergen [place]'s quarter (weed) IgE (09/01/2025 11:01 AM CDT) Templeton's quarters IgE <0.10 0.00 - 0.34 kUnits/L Comment:Testing performed by : [facility], [address] [place] [address]., [id number] Blood 09/01/2025 11:0 1 AM CDT 09/02/2025 10:20 AM CDT Vandana Resendez MD LAB BLOOD ORDERABLES Final Result BRANDEE [address] [address] [facility] [place] [address] * Allergen Faraz grass (grass) IgE (09/01/2025 11:01 AM CDT) Faraz grass IgE <0.10 0.00 - 0.34 kUnits/L Comment:Testing performed by : [facility], [address] [place]., [id number] Blood 09/01/2025 11:0 1 AM CDT 09/02/2025 10:20 AM CDT Vandana Resendez MD LAB BLOOD ORDERABLES Final Result Performing Organization Address City/[facility]/ZIP Co de Phone Number BRANDEE FIELDS [address] [address] [place] [address] * Allergen Demond grass (grass) IgE (09/01/2025 11:01 AM CDT) Demond grass IgE <0.10 0.00 - 0.34 kUnits/L Comment:Testing performed by : [facility], [address] [place] [address], [id number] Blood 09/01/2025 11:0 1 AM CDT 09/02/2025 10:20 AM CDT Vandana Resendez MD LAB BLOOD ORDERABLES Final Result Performing Organization Address [facility] Co de Phone Number BRANDEE DIAMOND [address] [address] [facility] [place] [address] * Allergen [place] (tree) IgE (09/01/2025 11:01 AM CDT) [place] (tree) IgE <0.10 0.00 - 0.34 kUnits/L Comment:Testing performed by : [facility], [address] [place] [address]., [id number] Blood 09/01/2025 11:0 1 AM CDT 09/02/2025 10:20 AM CDT Vandana Resendez MD LAB BLOOD ORDERABLES Final Result JAQUELINEDEDRICK FIELDS [address] [address] [place] [address] * Allergen [place] citizen [place] (tree) IgE (09/01/2025 11:01 AM CDT) [place] IgE <0.10 0.00 - 0.34 kUnits/L Comment:Testing performed by : [facility], [address] [place] [address]., [id number] Blood 09/01/2025 11:0 1 AM CDT 09/02/2025 10:20 AM CDT Vandana Resendez MD LAB BLOOD ORDERABLES Final Result Performing Organization Address [facility] Co de Phone Number [facility] [address] [address] [facility] [place] [address] * Allergen Maple/Box elder (tree) IgE (09/01/2025 11:01 AM CDT) Pathologist [facility] Maple/box elder IgE <0.10 0.00 - 0.34 kUnits/L Comment:Testing performed by : [facility], [address] [place] [address]., [id number] Blood 09/01/2025 11:0 1 AM CDT 09/02/2025 10:20 AM CDT Result [facility] Vandana Resendez MD LAB BLOOD ORDERABLES Final Result Performing Organization Address City/[facility] Co de Phone Number [facility] [address] [address] [place] [address] * Allergen [place] red (tree) IgE (09/01/2025 11:01 AM CDT) [place] IgE <0.10 0.00 - 0.34 kUnits/L Comment:Testing performed by : [facility], [address] [place] [address]., [id number] Blood 09/01/2025 11:0 1 AM CDT 09/02/2025 10:20 AM CDT Vandana Resendez MD LAB BLOOD ORDERABLES Final Result BRANDEE FIELDS [address] [address] [facility] [place] [address] * Erythrocyte sedimentation rate (09/01/2025 11:01 AM CDT) [facility] Erythrocyte sedimentation rate 12 1 - 20 mm/hr Blood 09/01/2025 11:0 1 AM CDT 09/01/2025 4:52 PM CDT Vandana Resendez MD LAB BLOOD ORDERABLES Final Result Performing Organization Address [facility] Co de Phone Number BRANDEE FIELDS [address] [address] [place] [address] * Rheumatoid factor (09/01/2025 11:01 AM CDT) [facility] Rheumatoid factor, quant <10 <=15 IUnits/mL Blood 09/01/2025 11:0 1 AM CDT 09/01/2025 4:52 PM CDT Vandana Resendez MD LAB BLOOD ORDERABLES Final Result Performing Organization Address [facility] Co de Phone Number BRANDEE FIELDS [address] [address] [place] [address] * CRP (acute phase) (09/01/2025 11:01 AM CDT) [facility] CRP 3.2 <=10.0 mg/L Blood 09/01/2025 11:0 1 AM CDT 09/01/2025 4:52 PM CDT Vandana Resendez MD LAB BLOOD ORDERABLES Final Result Performing Organization Address City/[facility]/ZIP Co de Phone Number BRANDEE FIELDS [address] [address] [facility] [place] [address] * (ABNORMAL) IgE (09/01/2025 11:01 AM CDT) IgE 151(H) <=100 IUnits/mL Comment:Testing performed by : [facility], [address] [facility] [place]., [address] Blood 09/01/2025 11:0 1 AM CDT 09/02/2025 10:07 AM CDT aVndana Resendez MD LAB BLOOD ORDERABLES Final Result [facility] [address] [address] [place] [address] * Comprehensive metabolic panel (09/01/2025 11:01 AM CDT) Sodium 141 135 - 145 mmol/L Potassium, pl 4.4 3.3 - 4.9 mmol/L [facility] Chloride 106 97 - 110 mmol/L [facility] CO2 24 22 - 32 mmol/L [facility] Anion gap 11 2 - 15 mmol/L [facility] BUN 11 6 - 25 mg/dL [facility] Creatinine 0.88 0.60 - 1.10 mg/dL [facility] Glucose 95 70 - 199 mg/dL [facility] Comment: Interpretive Data Fasting glucose >/= 126 mg/dl is diagnostic for diabetes. Fasting is defined as no caloric intake for at least 8 hours. Fasting glucose between 100 mg/dl to 125 mg/dl is diagnostic of prediabetes. In a patient with classic symptoms of hyperglycemia or hyperglycemic crisis, a random glucose >/= 200 mg/dl is diagnostic for diabetes. In the absence of unequivocal hyperglycemia, results should be confirmed by repeat testing. The classification and Diagnosis of Diabetes Diabetes Care 202; 46: S19-S40. Current interpretive data was last revised 2022. Calcium 9.5 8.5 - 10.3 mg/dL [facility] Bilirubin, total 0.3 0.1 - 1.2 mg/dL [facility] Protein, pl 7.3 6.5 - 8.5 g/dL [facility] Albumin 4.4 3.5 - 5.0 g/dL [facility] Alk phos 57 40 - 130 Units/L [facility] ALT 25 7 - 45 Units/L [facility] AST 31 10 - 45 Units/L [facility] Blood 09/01/2025 11:0 1 AM CDT 09/01/2025 4:24 PM CDT Vandana Resendez MD LAB BLOOD ORDERABLES Final Result Performing Organization Address City/[facility] Co de Phone Number BRANDEE [address] [address] [place] [address] * Hepatitis C antibody Blood (10/28/2024 7:45 AM EPIC APPLICATION COORDINATOR) Hep C Ab Nonreactive Nonreactive Comment: Antibodies to HCV not detected. Does NOT exclude the possibility of recent exposure to HCV. Current interpretive data was last revised on 22 Interpretive Data Nonreactive: Antibodies to HCV not detected. Does NOT exclude the possibility of recent exposure to HCV. Equivocal: Equivocal for HCV antibodies. Supplemental molecular testing will be automatically performed to determine infection status in accordance with current CDC screening recommendations. Reactive: Positive for HCV antibodies. This may represent current or past HCV infection. Supplemental molecular testing will be automatically performed to determine current infection status in accordance with current CDC screening recommendations. Interpretive data was last revised on 2020. Blood 10/28/2024 7:45 AM EPIC APPLICATION COORDINATOR 10/28/2024 12:46 PM EPIC APPLICATION COORDINATOR Weston Ace DO LAB MICROBIOLOGY - GENER AL ORDERABLES Final Result Performing Organization Address City/[facility] Co de Phone Number BRANDEE [address] [facility] [place] [address] from Last 3 Months or Most Recently Relevant to Health Maintenance Insurance [facility] [employer] Address: [address] [place] [address] [employer] Address: [facility] [id number] [place] [address] [employer] Address: [id number] [place] [address] Advance Directives For more information, please contact: [phone] * Full Code (Latest Code Status on File) Date Activated Date Inactivated Comments 01/06/2023 12:39 PM 01/08/2023 6:37 PM Care Teams Vibrator Equipment Tester Relationship Specialty Start Date End Date Weston Ace DO [address] [place] [id number] PCP - General Family Medicine 10/18/21
[2025-11-11 07:08] LABS: FSH 2.8 mIU/mL (.)
[2025-11-13 00:07] LABS: Free Testosterone (Direct) 2.3 pg/mL (0.0-4.2)
== END 2025-11-10 11:47 | disposition home or self-care (01) ==
PROVIDERS: PCP Family Medicine; Visit Provider Obstetrics & Gynecology
DX: F52.0 Hypoactive sexual desire disorder (principal)
CPT/HCPCS: 83001; 84144; 84402; 84403